=== PATIENT | male | born 1990 | race Caucasian/White ===

== ENCOUNTER 2024-02-21 15:52 | Emergency (ER) | payer MEDICAID ==
[~2024-02-21] VITALS: Ht 165.1 cm; Wt 63.6 kg
[2024-02-21 15:55] VITALS: BP 126/77; PULSE 67; RESP 18; TEMP 98.3; O2SAT 100
== END 2024-02-21 18:15 | disposition left against medical advice (07) ==
LOC: EMS 15:52
DX: M79.631 Pain in right forearm (principal); Z53.21 Procedure and treatment not carried out due to patient leaving prior to being seen by health care provider